=== PATIENT | male | born 1945 | race Caucasian/White ===

== ENCOUNTER → 2024-06-18 13:17 | Outpatient (BNVA) | payer MEDICAID, SELFPAY | PROVIDERS: Family Provider Internal Medicine Endocrinology, Diabetes & Metabolism; Referring Provider Nurse Practitioner Family; Visit Provider Nurse Practitioner Family | DX: R59.0 Localized enlarged lymph nodes (principal); R52 Pain, unspecified; L72.0 Epidermal cyst; D18.01 Hemangioma of skin and subcutaneous tissue; L57.8 Other skin changes due to chronic exposure to nonionizing radiation; D48.5 Neoplasm of uncertain behavior of skin; L57.0 Actinic keratosis | CPT/HCPCS: 11102; 17000; 99203 ==

== ENCOUNTER → 2024-07-30 12:48 | Outpatient (BNVA) | payer MEDICAID, SELFPAY | PROVIDERS: Family Provider Internal Medicine Endocrinology, Diabetes & Metabolism; Visit Provider Nurse Practitioner Family | DX: C44.329 Squamous cell carcinoma of skin of other parts of face (principal); D04.4 Carcinoma in situ of skin of scalp and neck | CPT/HCPCS: 99213 ==

== ENCOUNTER → 2024-10-21 11:13 | Outpatient (BNVA) | payer MEDICAID, SELFPAY | PROVIDERS: Family Provider Internal Medicine Endocrinology, Diabetes & Metabolism; Visit Provider Dermatology | DX: R59.0 Localized enlarged lymph nodes (principal); Z85.828 Personal history of other malignant neoplasm of skin; Z08 Encounter for follow-up examination after completed treatment for malignant neoplasm; Z86.007 Personal history of in-situ neoplasm of skin; D48.5 Neoplasm of uncertain behavior of skin; L57.0 Actinic keratosis | CPT/HCPCS: 11102; 17000; 99214 ==

== ENCOUNTER 2024-10-25 07:33 | Outpatient (CLI) | payer MEDICAID, SELFPAY ==
--- NOTE | 2024-10-25 08:17 | CT_ITS ---
NOTE: Report was unsigned for reason: Order was edited. Original Signature date and time was: @ 1059 WS: [id number] CT NECK WITH CONTRAST HISTORY: ENLARGED LYMPH NODES, skin cancer anterior LEFT scalp. TECHNIQUE: Contiguous 2 mm axial images are performed through the neck with intravenous contrast. Sagittal and coronal reformats are also submitted. All CT scans at [facility] use at least one of these dose optimization techniques: automated exposure control; mA and/or kV adjustment per patient size (includes targeted exams where dose is matched to clinical indication); or iterative reconstruction. CONTRAST: CONTRAST: Omnipaque 350; 100 mL IV. DLP: 2429.15 mGy.cm COMPARISON: None available. Level 1B lymph node on the LEFT is 8 mm. Fatty hilum is maintained. RIGHT level 1B lymph node with a fatty hilum 7 mm. Bilateral level II lymph nodes with the largest on the LEFT measuring 7 mm and this lymph node is rounded. Smaller level IIB lymph node on the LEFT. No significant level III adenopathy. Small level IV lymph nodes. No level VII lymph nodes. Bilateral level VA lymph nodes are round and slightly hypervascular measuring 5 mm. Very small supraclavicular and axillary lymph nodes. Posterior occipital lymph nodes are identified. These range in size from a few millimeters to 6 mm. These are bilateral. 5 mm lymph node posterior to the LEFT parotid gland. Oropharynx and nasopharynx are negative. No tongue base abnormality. Normal larynx. No parotid, submandibular or thyroid mass. Dominant distal RIGHT vertebral artery. Very tiny caliber but patent LEFT vertebral artery. Visualized paranasal sinuses and mastoid air cells are normal. [facility] apices are clear[facility] [id number] IMPRESSION: 1. There are numerous but small cervical chain lymph nodes. Some of these demo nstrate mild enhancement. No necrotic adenopathy. For the most part fatty hilum is maintained. 2. Lymphatic drainage from the anterior scalp predominantly to the submandibul ar lymph nodes. The largest lymph node on the LEFT is 7 mm. 3. Consider further evaluation by PET/CT imaging of these lymph nodes. By CT c riteria they are not enlarged. There is no necrosis. Some of these lymph nodes are round and hypervascular which increases level of concern for malignancy.
--- NOTE | 2024-10-25 08:17 | CT_ITS ---
WS: [id number] CT HEAD WITH AND WITHOUT CONTRAST HISTORY: ENLARGED LYMPH NODES TECHNIQUE: Noncontrast axial images obtained from the vertex to the skull base. Additional imaging performed in axial images status post IV contrast. Bone and soft tissue windows are reviewed. All CT scans at [facility] use at least one of these dose optimization techniques: automated exposure control; mA and/or kV adjustment per patient size (includes targeted exams where dose is matched to clinical indication); or iterative reconstruction. CONTRAST: Omnipaque 350; 100 mL IV. DLP: 2429.15 mGy.cm COMPARISON: None available. No acute intracranial hemorrhage, edema or midline shift. Mild cerebral atrophy. Mild small vessel disease. 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 Additional small lacunar infarct external capsule on the LEFT. Prior lacunar infarct LEFT cerebellum. No enhancing mass or vascular malformations identified. Dural venous sinuses are normally enhancing. Visualized [place] is unremarkable. Paranasal sinuses as visualized: Clear. Mastoid air cells: Clear. Calvarium and scalp: No destructive bone lesions. Focal area of scalp thickening centered over the LEFT frontal bone. There is an additional area of scalp thickening towards the high posterior LEFT parietal bone measuring 11 mm. Small slightly enhancing lymph node LEFT occipital region. This lymph node is small measuring only 6.3 mm in transverse diameter. CT/CT head wo/w con [id number] IMPRESSION: 1. No acute intracranial hemorrhage or edema. 2. No enhancing masses. 3. Mild cerebral and cerebellar atrophy. 4. Numerous small lacunar infarcts as above. No enhancement. Favor these are a ll lacunar infarcts. If there is concern for intracranial metastatic disease co nsider follow-up MRI brain with and without contrast. 5. Scalp thickening with nodules LEFT frontal and high LEFT parietal regions. Scalp lesion should be considered. Prior history of scalp resection. 6. Small LEFT occipital lobe lymph node at 6.3 mm. Indeterminate.
[2024-10-25 08:27] LABS: Blood Urea Nitrogen 15 mg/dL (8-23)
[2024-10-25] MEDS: iohexol 350 mg/mL 500 mL Btl (per mL) IV ×2 (08:29)
== END 2024-10-25 07:34 | disposition home or self-care (01) ==
PROVIDERS: Visit Provider Dermatology
DX: R59.9 Enlarged lymph nodes, unspecified (principal); G31.89 Other specified degenerative diseases of nervous system; Z85.828 Personal history of other malignant neoplasm of skin
CPT/HCPCS: 70470; 70491; 70492; 82565; 84520

== ENCOUNTER → 2024-12-19 14:05 | Outpatient (BNVA) | payer MEDICAID, SELFPAY | PROVIDERS: Visit Provider Nurse Practitioner Family | DX: L81.4 Other melanin hyperpigmentation (principal); L57.8 Other skin changes due to chronic exposure to nonionizing radiation; Z85.828 Personal history of other malignant neoplasm of skin; Z08 Encounter for follow-up examination after completed treatment for malignant neoplasm; Z86.007 Personal history of in-situ neoplasm of skin; L57.0 Actinic keratosis; L56.8 Other specified acute skin changes due to ultraviolet radiation | CPT/HCPCS: 17000; 99213 ==